=== PATIENT | female | born 1980 | race Caucasian/White ===

== ENCOUNTER 2016-12-07 00:04 | Emergency (ER) | payer BC, OTHER ==
[~2016-12-07] VITALS: Ht 160 cm; Wt 67.1 kg
--- NOTE | 2016-12-07 00:17 | NUR ---
PT BIB , PT AMBULAOTRY TO ER BED 2 PT STATES "BEFORE I WENT TO BED I FELT SHORT OF BREATH" PT AOX4 RR EVEN AND UNLABORED. NO SOB NOTED. NAD NOTED. NO NVD THIS TIME. PT NOT DIAPHORETIC. PT GOWNED AND PLACED ON MONITOR WAITING FOR MD ARMSTRONG. PT STATES SHE IS 31 WKS . URINE COLLECTED.
--- NOTE | 2016-12-07 00:24 | NUR ---
DR. HOGUE AT BEDSIDE FOR EVAL.
--- NOTE | 2016-12-07 00:42 | NUR ---
CALLED DR. FINCH. [phone]. DR. HOGUE SPEAKING TO OB DR FINCH REGARDING POC
--- NOTE | 2016-12-07 00:50 | NUR ---
XRAY AT BEDSIDE
--- NOTE | 2016-12-07 01:26 | NUR ---
DR. HOGUE AT BEDSIDE SPEAKING TO PT AND REGARDING RESULTS.
--- NOTE | 2016-12-07 01:28 | NUR ---
Patient discharged to home in stable condition. Written and verbal after care instructions given. Patient verbalizes understanding of instruction. ambulatory with a steady gait
[2016-12-07 01:29] VITALS: BP 106/75
== END 2016-12-07 01:29 | disposition home or self-care (01) ==
LOC: ER 00:07
DX: O99.513 Diseases of the respiratory system complicating pregnancy, third trimester (principal); R06.02 Shortness of breath; Z3A.31 31 weeks gestation of pregnancy
CPT/HCPCS: 71010; 93005; 99284; A4606; Z7610

== ENCOUNTER 2017-03-14 08:05 | Emergency (ER) | payer BC ==
[~2017-03-14] VITALS: Ht 160 cm; Wt 62.6 kg
[2017-03-14 08:05] VITALS: BP 113/78
[2017-03-14] MEDS ORDERED: LIDOCAINE HCL/PF 1% 30 ML SDV ONE (08:26)
--- NOTE | 2017-03-14 08:30 | NUR ---
VERBAL ORDER LIDOCAINE 1% FROM DR DOOLEY
== END 2017-03-14 09:01 | disposition home or self-care (01) ==
LOC: ER 08:10
DX: L02.412 Cutaneous abscess of left axilla (principal)
CPT/HCPCS: 10060; 99283; A4606; A6402; J3490; Z7610